=== PATIENT | male | born 1990 | race Caucasian/White ===

== ENCOUNTER 2019-03-11 07:40 | Emergency (ER) | payer SELFPAY ==
[~2019-03-11] VITALS: Ht 172.7 cm; Wt 77.1 kg
--- NOTE | 2019-03-11 07:40 | NUR ---
Patient BIBA ALS, transferred to bed 9. RN evaluating patient at bedside.
[2019-03-11 07:43] VITALS: BP 118/78
--- NOTE | 2019-03-11 07:53 | NUR ---
Dr. Cheng is evaluating the patient at bedside.
--- NOTE | 2019-03-11 07:53 | NUR ---
DR SALDAÑA AT BEDSIDE.
--- NOTE | 2019-03-11 07:54 | NUR ---
[facility] C/O UNWITNESSED SEIZURE X TODAY. PER PATIENT, HIS BOSS FOUND HIM LYING ON THE RESTROOM FLOOR, PT BELIEVES HE HAD A SEIZURE. PT NOW C/O R SIDED HEAD AND NECK PAIN 10/06. NEURO INTACT- PUPILS PERRL. EQUAL ARM AND LEG STRENGTH. GCS 15. PT ANSWERING QUESTIONS APPROPRIATELY. PT ALERT AND AWAKE. VS STABLE. PT HAS BEEN NON-COMPLIANT WITH MEDICATIONS. PMH- SEIZURE RX- DEPAKOTE
--- NOTE | 2019-03-11 08:06 | NUR ---
LABS AT BEDSIDE.
[2019-03-11] MEDS: levETIRAcetam 500 MG TAB PO ONE (08:17)
--- NOTE | 2019-03-11 08:17 | NUR ---
MEDS GIVEN KEPPRA PO.
[2019-03-11 08:19] LABS: BASOPHILS # (AUTO) 0.1 K/uL (0.00-0.22); BASOPHILS % (AUTO) 1.1 % (0.0-2.0); EOSINOPHILS # (AUTO) 0.3 K/uL (0-0.4); EOSINOPHILS % (AUTO) 3.1 % (0.0-4.0); HEMATOCRIT 45.5 % (36-52); HEMOGLOBIN 15.3 g/dL (12.0-18.0); LYMPHOCYTES # (AUTO) 1.5 K/uL (2.0-11.5); LYMPHOCYTES % (AUTO) 15.7 % (20.5-51.1); MEAN CORPUSCULAR HEMOGLOBIN 31 pg (27-31); MEAN CORPUSCULAR HGB CONC 34 g/dL (33-37); MEAN CORPUSCULAR VOLUME 92.5 fL (80-94); MONOCYTES # (AUTO) 0.6 K/uL (0.8-1.0); MONOCYTES % (AUTO) 6.6 % (1.7-9.3); NEUTROPHILS # (AUTO) 7.2 K/uL (1.8-7.7); NEUTROPHILS % (AUTO) 73.5 % (42.2-75.2); PLATELET COUNT (AUTO) 313 K/uL (140-450); RED BLOOD CELL COUNT(AUTO) 4.92 MIL/uL (4.20-6.10); RED CELL DISTRIBUTION WIDTH 12.8 % (11.6-13.7); WHITE BLOOD COUNT (AUTO) 9.8 K/uL (4.8-10.8)
[2019-03-11 08:26] LABS: ANION GAP 10.4 (8-16); CARBON DIOXIDE 33.8 mmol/L (21-32); CHLORIDE 105 mmol/L (98-107); CREATININE 0.8 mg/dL (0.7-1.3); GFR ARICAN-AMERICAN 146 mL/min (>90); GLUCOSE 84 mg/dL (74-106); POTASSIUM 4.2 mmol/L (3.5-5.1); SODIUM SERUM 145 mmol/L (136-145); UREA NITROGEN, BLOOD 10 mg/dL (7-18)
[2019-03-11 08:32] LABS: ALBUMIN 3.9 g/dL (3.4-5.0); ASPARTATE AMINOTRANSFERASE 25 U/L (15-37); TOTAL BILIRUBIN 0.5 mg/dL (0.0-1.0)
--- NOTE | 2019-03-11 08:40 | NUR ---
PT RETURNED FROM CT VIA [facility]
--- NOTE | 2019-03-11 08:46 | NUR ---
Dr. Cheng is re-evaluating the patient at bedside.
--- NOTE | 2019-03-11 08:47 | NUR ---
DR SALDAÑA SPEAKING WITH PATIENT REGARDING RIVER RE-EXAMINATION
[2019-03-11] MEDS: ACETAMINOPHEN 325 MG TAB PO ONE (09:11)
--- NOTE | 2019-03-11 09:12 | NUR ---
pt states recently homeless, will provide pt with proper resources upon discharge
--- NOTE | 2019-03-11 09:12 | NUR ---
tylenol po administered. nadr to david
--- NOTE | 2019-03-11 09:25 | NUR ---
pt pain level at 5/10.
--- NOTE | 2019-03-11 09:30 | NUR ---
Patient discharged with v/s stable. Written and verbal after care instructions given and explained seizures Patient alert, oriented and verbalized understanding of instructions. Ambulatory with steady gait. All questions addressed prior to discharge. ID band removed. Patient advised to follow up with PMD. Rx of keppra 500mg/tab given. Patient educated on indication of medication including possible reaction and side effects. Opportunity to ask questions provided and answered.pt given excuse for work,provided list of homeless facility , provided meal to go and given bus pass.
[2019-03-11 09:34] VITALS: BP 108/60
== END 2019-03-11 09:30 | disposition home or self-care (01) ==
LOC: MED 07:40
DX: R51 Headache (principal); M54.2 Cervicalgia; G40.909 Epilepsy, unspecified, not intractable, without status epilepticus
CPT/HCPCS: 36415; 70450; 72125; 80053; 85025; 99284; G0482

== ENCOUNTER 2019-04-23 14:18 | Emergency (ER) | payer MEDICAID ==
[~2019-04-23] VITALS: Ht 166.4 cm; Wt 82.1 kg
[2019-04-23 14:21] VITALS: BP 147/94
--- NOTE | 2019-04-23 15:24 | NUR ---
PT AMBULATED TO BED 03
--- NOTE | 2019-04-23 15:38 | NUR ---
PATIENT PRESENTS TO ED WITH LEFT EAR PAIN X 2 DAYS. PT DESCRIBES PAIN SHARP, 10/10. PAIN ACCOMPANIED BY HEARING LOSS AND FEVER. AFFECTED AREA IS RED AND WARM TO TOUCH. UPON INSPECTION, TYMPANIC MEMBRANE BULGING. PATIENT STATES PAIN OF 10/10 AT THIS TIME; VSS; PATIENT POSITIONED FOR COMFORT; HOB ELEVATED; BEDRAILS UP X2; BED DOWN. ER MD MADE AWARE OF PT STATUS. PMH: GRAN MAL SEIZURES MEDS: NONE NKA
[2019-04-23 15:46] VITALS: BP 147/94
--- NOTE | 2019-04-23 15:46 | NUR ---
Patient discharged with v/s stable. Written and verbal after care instructions given and explained. Patient alert, oriented and verbalized understanding of instructions. Ambulatory with steady gait. All questions addressed prior to discharge. ID band removed. Patient advised to follow up with PMD. Rx of CIPRODEX, AMOXICILLIN given. Patient educated on indication of medication including possible reaction and side effects. Opportunity to ask questions provided and answered.
== END 2019-04-23 15:46 | disposition home or self-care (01) ==
LOC: MED 14:18
DX: H66.91 Otitis media, unspecified, right ear (principal); H60.91 Unspecified otitis externa, right ear
CPT/HCPCS: 99283